=== PATIENT | female | born 1985 ===

== ENCOUNTER 2021-12-31 04:24 | Day surgery (SDC) | payer OTHER ==
[2021-12-29 15:21] VITALS: BMI 31.1
[2021-12-31] MEDS ORDERED: BUPIVACAINE HCL/PF 0.5% (5MG/ML) 10 ML VIAL ONE (07:19)
[2021-12-31] MEDS ORDERED: ONDANSETRON 4 MG/2 ML VIAL ONE (08:04)
[2021-12-31] MEDS ORDERED: MIDAZOLAM HCL 2 MG/2 ML SINGLE DOSE VIAL ONE (08:04)
[2021-12-31] MEDS ORDERED: DEXAMETHASONE SOD PHOSPHATE 4 MG/1 ML VIAL ONE (08:04)
[2021-12-31] MEDS ORDERED: KETOROLAC TROMETHAMINE 30 MG/1 ML VIAL ONE (08:04)
[2021-12-31] MEDS ORDERED: SUCCINYLCHOLINE CHLORIDE 200 MG/10 ML SYRINGE ONE (08:04)
[2021-12-31] MEDS ORDERED: LIDOCAINE HCL/PF (2%) 40 MG/2 ML VIAL ONE (08:05)
[2021-12-31] MEDS ORDERED: PROPOFOL 20 ML ONE (08:05)
[2021-12-31] MEDS ORDERED: PROMETHAZINE HCL 25 MG/1 ML VIAL IVPUSH PRN (08:26)
[2021-12-31] MEDS ORDERED: oxyCODONE HCL 5 MG TABLET PO PRN ×2 (08:26)
[2021-12-31] MEDS ORDERED: ONDANSETRON 4 MG/2 ML VIAL IVPUSH PRN (08:26)
[2021-12-31] MEDS ORDERED: ACETAMINOPHEN 500 MG TABLET (FP) PO PRN (08:26)
[2021-12-31] MEDS ORDERED: LACTATED RINGERS SOLUTION 1,000 ML IV SCH (08:30)
[2021-12-31] MEDS ORDERED: ROCURONIUM BROMIDE 50 MG/5 ML SYRINGE ONE (09:08)
[2021-12-31] MEDS ORDERED: BUPIVACAINE HCL/PF 0.5% (5MG/ML) 10 ML VIAL IJ ONE ×2 (09:24)
[2021-12-31] MEDS ORDERED: NEOSTIGMINE METHYLSULFATE 0.5 MG/ML - 10 ML MDV ONE (09:35)
[2021-12-31 12:06] VITALS: RESP 18
[2021-12-31 12:35] VITALS: BP 100/60; PULSE 78; TEMP 97.4
== END 2021-12-31 13:39 | disposition home or self-care (01) ==
LOC: JASU-SURG 04:24
PROVIDERS: ATTEND Student in an Organized Health Care Education/Training Program
PROC: 0UT74ZZ Resection of Bilateral Fallopian Tubes, Percutaneous Endoscopic Approach (ICD-10-PCS; principal; 2021-12-31 09:21)
DX: Z30.2 Encounter for sterilization (principal)
CPT/HCPCS: 81025; 88305-TC; 94760